=== PATIENT | male | born 1985 | race Asian ===

== ENCOUNTER 2016-08-14 11:24 | Emergency (ER) | payer OTHER ==
[2016-08-14 11:47] VITALS: BP 164/89; PULSE 80; RESP 16; TEMP 98.2; O2SAT 98
[2016-08-14] MEDS ORDERED: TDAP ADULT 0.5 ML INJ (BOOSTRIX) IM ONE (11:48)
--- NOTE | 2016-08-14 12:06 | UCPHY ---
H & P Time Seen by Provider: 08/14/16 11:58 Patient Type: New HPI/ROS: CHIEF COMPLAINT: Foot wound History by patient HISTORY OF PRESENT ILLNESS: 30-year-old man presents complaining of wound to his right dorsum of the foot where he struck it with a metal spike he was using to aerate his lawn. He was wearing flip-flops not shoes so the spike went directly into his skin. He complains of only minimal pain in the bleeding is controlled he states he is here just to get a tetanus shot. Patient states he washed the wound out with hydrogen peroxide and water. REVIEW OF SYSTEMS: As in HPI, and all other systems reviewed and are negative Smoking Status: Never smoked Physical Exam: General Appearance: Alert and no distress. Well-appearing Musculoskeletal: Right foot with puncture wound to dorsum between flexor tendons. Bleeding controlled. Full range of motion of all toes and ankles, distal cap refill less than 2 seconds in distal sensation intact, DP pulse intact and equal bilaterally. Skin: No rashes, lesion as above.. Constitutional: Initial Vital Signs Temperature (C) 36.8 C 08/14/16 11:45 Heart Rate 80 08/14/16 11:45 Respiratory Rate 16 08/14/16 11:45 Blood Pressure 164/89 H 08/14/16 11:45 O2 Sat (%) 98 08/14/16 11:45 O2 Delivery Mode Room Air Allergies/Adverse Reactions: No Known Allergies Allergy (Verified 08/14/16 11:47) Home Medications: Medication Instructions Recorded Miscellaneous Medical Supply [NO 08/31/12 HOME MEDS] Medical Decision Making ED Course/Re-evaluation: Patient presents with puncture wound to the dorsum of his right foot. I was concerned about the risk of infection. We discussed signs and symptoms that would suggest infected puncture wound including redness, swelling, increased pain or purulence or fever. I am recommending the patient soak the wound in warm soapy water daily and watch for signs and symptoms of infection. He was given a tetanus shot. - Data Points Medications Given: Discontinued Medications Diphtheria/Tetanus/Acell Pertussis (Boostrix) 0.5 ml IM .ONCE ONE Stop: 08/14/16 11:49 Last Admin: 08/14/16 11:57 Dose: 0.5 ml Departure - Departure Disposition: Home, Routine, Self-Care Clinical Impression: Puncture wound of foot Condition: Good Instructions: Puncture Wound (ED) Additional Instructions: You were seen by Dr. Emperatriz Sheikh today. Return for any worsening or new concerns. Keep the wound covered and soak in warm soapy water twice a day. Return immediately for any signs or symptoms of infection including but not limited to increased pain, redness, drainage from the wound or fever. Referrals: NONE *PRIMARY CARE P,. [Primary Care Provider] - As per Instructions - PQRS PQRS Measurement: NA
== END 2016-08-14 12:15 | disposition home or self-care (01) ==
LOC: CED 11:24
DX: S91.331A Puncture wound without foreign body, right foot, initial encounter (principal); Z23 Encounter for immunization; W26.8XXA Contact with other sharp object(s), not elsewhere classified, initial encounter; Y93.H2 Activity, gardening and landscaping
CPT/HCPCS: 99203-PO; G0463-PO